=== PATIENT | female | born 1945 | race American Indian/Alaskan Native ===

== ENCOUNTER 2017-06-21 15:15 | Inpatient (IN) | payer MEDICARE ==
[2017-06-21 16:08] LABS: Basophils % (Auto) 1.4 % (0.0-1.8); Eosinophils % (Auto) 0.6 % (0.0-4.3); Hematocrit 44.2 % (30.3-42.9); Hemoglobin 14.3 gm/dl (10.1-14.3); Mean Corpuscular HGB Conc 32 % (30-34); Mean Corpuscular Hemoglobin 29 pg (28-32); Mean Corpuscular Volume 90 fl (79-97); Platelet Count 300 K/mm3 (140-440); Red Blood Count 4.92 M/mm3 (3.65-5.03); Red Cell Distribution Width 14.3 % (13.2-15.2); White Blood Count 8.3 K/mm3 (4.5-11.0)
[2017-06-21 16:20] LABS: Anion Gap 21 mmol/L; BUN/Creatinine Ratio 12; Blood Urea Nitrogen 11 mg/dL (7-17); Calcium 10.1 mg/dL (8.4-10.2); Carbon Dioxide 26 mmol/L (22-30); Chloride 97.2 mmol/L (98-107); Glucose 162 mg/dL (65-100); Potassium 3.9 mmol/L (3.6-5.0); Sodium 140 mmol/L (137-145)
--- NOTE | 2017-06-21 18:44 | Emergency Department Report ---
HPI - General Chief Complaint: Chest Pain Time Seen by Provider: 06/21/17 17:14 - HPI HPI: This is a 71-year-old -[place] Citizen female presents to the emergency department with complaint of some midsternal nonradiating chest pain that started earlier today but that has since resolved. The patient says that over the past year she has been very immobile and spitting a lot of time in bed. At first she just felt like it was because she is fatigued but it appears that she has had some physical deconditioning. The patient has a past medical history of arthritis, diabetes, hypertension, fibromyalgia and coronary artery disease with 3 stents. The patient was here in December or chest pain issues and had a negative stress test at that time. Her primary care physician is Dr. Alan. Her blood bank calendar control clerk is Dr. Godoy. No recent travel or sick contacts at home. She denies any fever, nausea, vomiting or diaphoresis. She has not taken anything for her symptoms prior to presentation today. ED Past Medical Hx - Past Medical History Hx Hypertension: Yes Hx Diabetes: Yes Hx Arthritis: Yes Additional medical history: gastritis. heart disease. fibromylagia - Surgical History Hx Coronary Stent: Yes (3) Additional Surgical History: hyster - Social History Smoking Status: Current Some Day Smoker Substance Use Type: None - Medications Home Medications: Home Medications Medication Instructions Recorded Confirmed Last Taken Type LORazepam [Ativan] 1 mg PO TID PRN 08/17/14 06/21/17 06/21/17 History Citalopram [Celexa] 20 mg PO QDAY 01/02/17 06/21/17 06/21/17 History Famotidine [Pepcid] 40 mg PO DAILY 01/02/17 06/21/17 06/21/17 History Metoprolol Succinate 25 mg PO BID 01/02/17 06/21/17 06/21/17 History amLODIPine [Norvasc] 10 mg PO BID 01/02/17 06/21/17 06/21/17 History Acetaminophen with Codeine 1 tab PO Q6HR PRN 06/21/17 06/21/17 Unknown History [Acetaminophen-Codeine #4 TAB] Furosemide [Lasix] 20 mg PO QAM 06/21/17 06/21/17 06/21/17 History ED Review of Systems ROS: Stated complaint: CHEST PAIN/SHORTNESS OF BREATH Other details as noted in HPI Comment: All other systems reviewed and negative Constitutional: denies: chills, fever Eyes: denies: eye pain, eye discharge, vision change ENT: denies: ear pain, throat pain Respiratory: denies: cough, wheezing Cardiovascular: chest pain. denies: palpitations Gastrointestinal: denies: abdominal pain, nausea, diarrhea Genitourinary: denies: urgency, dysuria, discharge Musculoskeletal: denies: back pain, joint swelling, arthralgia Skin: denies: rash, lesions Neurological: denies: headache, numbness Physical Exam - Physical Exam Vital Signs: Vital Signs 06/21/17 06/21/17 06/21/17 15:30 17:02 17:49 Temperature 98.3 F 98.5 F Pulse Rate 75 72 Respiratory 16 16 16 Rate Blood Pressure 129/77 Blood Pressure 120/67 [Left] O2 Sat by Pulse 93 97 95 Oximetry Physical Exam: GENERAL: The patient is well-developed well-nourished. HENT: Normocephalic. Atraumatic. Patient has moist mucous membranes. EYES: Extraocular motions are intact. Pupils equal reactive to light bilaterally. NECK: Supple. Trachea is midline. CHEST/LUNGS: Clear to auscultation. There is no respiratory distress noted. HEART/CARDIOVASCULAR: Regular. There is no tachycardia. There is no gallop rub or murmur. ABDOMEN: Abdomen is soft, nontender. Patient has normal bowel sounds. There is no abdominal distention. SKIN: Skin is warm and dry. NEURO: The patient is awake, alert. The patient is cooperative. The patient has no focal neurologic deficits. The patient has normal speech. MUSCULOSKELETAL: There is no tenderness or deformity. There is no limitation range of motion. There is no evidence of acute injury. ED Course Vital Signs 06/21/17 06/21/17 06/21/17 15:30 17:02 17:49 Temperature 98.3 F 98.5 F Pulse Rate 75 72 Respiratory 16 16 16 Rate Blood Pressure 129/77 Blood Pressure 120/67 [Left] O2 Sat by Pulse 93 97 95 Oximetry ED Medical Decision Making - Lab Data Result diagrams: 06/21/17 15:43 06/21/17 15:43 - EKG Data -: EKG Interpreted by Me EKG shows normal: sinus rhythm, axis (left axis deviation), intervals, QRS complexes (Q waves to the anterior and inferior leads), ST-T waves (flat T waves and some T-wave inversions to the lateral leads) Rate: normal - EKG Data When compared to previous EKG there are: changes noted (patient now has some T- wave inversions to the lateral leads but otherwise unchanged.) Interpretation: other (sinus rhythm, left axis deviation, Q waves to the anterior and inferior leads, T-wave inversions to the lateral leads) - Radiology Data Radiology results: image reviewed interpreted by me: Chest x-ray does not show any acute process. There are no pleural effusions, obvious pneumonia and there is no pneumothorax. - Medical Decision Making 72-year-old female presents with some chest pain going on for most the day but that has appeared to resolve. EKG does not show any ST elevation MS but there are some T-wave inversions to the lateral leads that are new from her previous EKG. Negative d-dimer. Chest x-ray does not show any acute process. While patient does not appear in any acute distress, with her history of previous coronary artery disease, her advanced age, the EKG changes, the patient will be admitted to the hospital for further evaluation and treatment. - Differential Diagnosis MS, PE, Dysrhythmia, Pneumonia Critical Care Time: No Critical care attestation.: If time is entered above; I have spent that time in minutes in the direct care of this critically ill patient, excluding procedure time. ED Disposition Clinical Impression: History of PTCA Chest pain Qualifiers: Chest pain type: unspecified Qualified Code(s): R07.9 - Chest pain, unspecified Disposition: OP ADMIT IP TO THIS HOSP Is pt being admited?: Yes Does the pt Need Aspirin: Yes Condition: Stable Time of Disposition: 20:58
[2017-06-21] MEDS ORDERED: BABY ASPIRIN PO ONE (20:58)
[2017-06-21] MEDS ORDERED: HEPARIN SUB-Q ONE (21:42)
[2017-06-21] MEDS ORDERED: HEPARIN SUB-Q SCH (22:00)
--- NOTE | 2017-06-21 22:10 | History and Physical Report ---
History of Present Illness Date of examination: 06/21/17 Date of admission: 06/21/17 20:59 History of present illness: 72-year-old woman history of hypertension, diabetes, coronary artery disease comes emergency room with complaints of epigastric pain which 3 weeks ago.. She describes as a squeezing pain, intermittent every 5 minutes, intensity 5/10 , no radiation, she cannot identify an sounds exacerbating or relieving factors. Admits to shortness of breath, no nausea vomiting, diaphoresis or palpitation. Recent admission for chest pain Review Of Systems: Constitutional: no weight loss Ears, eyes, nose, mouth and throat: no nasal congestion, no nasal discharge, no sinus pressure, blurry vision, diplopia Neck: No neck pain or rigidity. Cardiovascular no , orthopnea, palpitations Respiratory: No cough Gastrointestinal: no abdominal pain, hematochezia Genitourinary : no dysuria, frequency , hematuria Musculoskeletal: no muscle ache Integumentary: no rash, no pruritis Neurological: no parathesias, focal weakness Endocrine: no cold or heat intolerance, no polyuria or polydipsia Hematologic/Lymphatic: no easy bruising, no easy bleeding, no gland swelling Allergic/Immunologic: no urticaria, no angioedema. PAST SURGICAL HISTORY: None SOCIAL HISTORY: Denies alcohol, drug, quit tobacco 2v weeks ago FAMILY HISTORY: Hypertension Medications and Allergies Allergies Allergy/AdvReac Type Severity Reaction Status Date / Time Iodinated Contrast- Oral and Allergy Unknown Verified 01/02/17 01:13 IV Dye rosuvastatin Allergy Unknown Verified 01/02/17 01:13 Home Medications Medication Instructions Recorded Confirmed Last Taken Type LORazepam [Ativan] 1 mg PO TID PRN 08/17/14 06/21/17 06/21/17 History Citalopram [Celexa] 20 mg PO QDAY 01/02/17 06/21/17 06/21/17 History Famotidine [Pepcid] 40 mg PO DAILY 01/02/17 06/21/17 06/21/17 History Metoprolol Succinate 25 mg PO BID 01/02/17 06/21/17 06/21/17 History amLODIPine [Norvasc] 10 mg PO BID 01/02/17 06/21/17 06/21/17 History Acetaminophen with Codeine 1 tab PO Q6HR PRN 06/21/17 06/21/17 Unknown History [Acetaminophen-Codeine #4 TAB] Furosemide [Lasix] 20 mg PO QAM 06/21/17 06/21/17 06/21/17 History Active Meds: Active Medications Heparin Sodium (Porcine) (Heparin) 5,000 unit SUB-Q Q8HR VOLODYMYR Last Admin: 06/21/17 21:54 Dose: Not Given Exam - Physical Exam Narrative exam: Gen. appearance: Patient lying in bed in no acute distress HEENT: Normocephalic/atraumatic, pupils equal round reactive to light, extra alkaline movement intact, no scleral icterus, no JVD or thyromegaly or nodule, neck is supple, mucous membrane moist, no erythema or exudate Heart: S1-S2, regular rate and rhythm Lungs: Clear to auscultation bilateral breathing comfortable Abdomen: Positive bowel sounds, nontender, nondistended, no organomegaly Extremities: No edema, cyanosis, clubbing Neuro:: Oriented 3 , cranial nerves II-12 intact, speech, motor intact Skin: No rash, nodules, warm dry - Constitutional Vitals: Temp Pulse Resp BP Pulse Ox 98.5 F 76 18 127/76 100 06/21/17 17:02 06/21/17 22:04 06/21/17 22:04 06/21/17 22:04 06/21/17 22:04 Results - Labs CBC & Chem 7: 06/21/17 15:43 06/21/17 15:43 Labs: Abnormal lab results 06/21/17 06/21/17 Range/Units 15:43 15:43 Hct 44.2 H (30.3-42.9) % [place] % (Auto) 7.6 H (0.0-7.3) % Chloride 97.2 L (98-107) mmol/L Glucose 162 H (65-100) mg/dL - Imaging and Cardiology EKG: image reviewed Chest x-ray: image reviewed Assessment and Plan Assessment Unstable angina Coronary artery disease Hypertension Diabetes type 2 Plan Admit to medicine Check cardiac enzymes, cardiology consult Check fingersticks initiate insulin sliding scale Continue outpatient medication comes start DVT prophylaxis
[2017-06-21] MEDS ORDERED: MORPHINE IV ONE (22:25)
[2017-06-21] MEDS ORDERED: ZOFRAN IV PRN (23:19)
[2017-06-21] MEDS ORDERED: DULCOLAX PR PRN (23:19)
[2017-06-21] MEDS ORDERED: APRESOLINE IV PRN (23:19)
[2017-06-21] MEDS ORDERED: TYLENOL PO PRN (23:19)
[2017-06-21] MEDS ORDERED: D50W (25GM) Syringe IV PRN (23:19)
[2017-06-21] MEDS ORDERED: MILK OF MAGNESIA PO PRN (23:19)
[2017-06-22 06:07] LABS: Basophils % (Auto) 1.1 % (0.0-1.8); Eosinophils % (Auto) 1.2 % (0.0-4.3); Hematocrit 39.1 % (30.3-42.9); Mean Corpuscular HGB Conc 33 % (30-34); Mean Corpuscular Hemoglobin 30 pg (28-32); Mean Corpuscular Volume 89 fl (79-97); Platelet Count 267 K/mm3 (140-440); Red Blood Count 4.39 M/mm3 (3.65-5.03); Red Cell Distribution Width 14.1 % (13.2-15.2); White Blood Count 9.4 K/mm3 (4.5-11.0)
[2017-06-22 06:49] LABS: Anion Gap 17 mmol/L; BUN/Creatinine Ratio 13; Blood Urea Nitrogen 8 mg/dL (7-17); Calcium 9.4 mg/dL (8.4-10.2); Carbon Dioxide 25 mmol/L (22-30); Chloride 98.5 mmol/L (98-107); Glucose 104 mg/dL (65-100); Potassium 3.7 mmol/L (3.6-5.0); Sodium 137 mmol/L (137-145)
--- NOTE | 2017-06-22 09:25 | XRay Report ---
AP CHEST: HISTORY: chest pain AP view of the chest demonstrates a normal mediastinal and cardiac contour with clear lungs and normal bony and soft tissue structures. No significant change since 01/02/17. IMPRESSION: Unremarkable AP chest.
--- NOTE | 2017-06-22 09:35 | Progress Note ---
Assessment and Plan Assessment and plan: --Unstable angina; serial cardiac enzymes, echocardiogram, cardiology evaluation Continue current cardiac medications, Stress test 6 months ago was negative --Hypertension; moderate control, continue current antihypertensives and when necessary medications --Diabetes mellitus; Accu-Chek sliding scale coverage and ADA diet and insulin as needed --DVT prophylaxis with Lovenox --Follow cardiology evaluation and recommendations --DC planning. Case management, possible HHS at discharge --Full code Discussed plan of care with the patient and her daughter at the bedside Answered all their questions History Interval history: Patient seen and examined medical records reviewed Complaints of intermittent chest pain Denies nausea vomiting Vital signs reviewed Hospitalist Physical - Constitutional Vitals: Temp Pulse Resp BP Pulse Ox 98.7 F 70 20 119/68 97 06/22/17 06:03 06/22/17 06:03 06/22/17 06:03 06/22/17 06:03 06/22/17 06:03 General appearance: Present: no acute distress, well-nourished - EENT Eyes: Present: PERRL, EOM intact - Neck Neck: Present: supple, normal ROM - Respiratory Respiratory effort: normal Respiratory: bilateral: diminished, negative: rales, rhonchi, wheezing - Cardiovascular Rhythm: regular Heart Sounds: Present: S1 & S2 - Extremities Extremities: no ischemia, No edema - Abdominal General gastrointestinal: soft, non-tender, non-distended, normal bowel sounds - Integumentary Integumentary: Present: clear, warm - Psychiatric Psychiatric: appropriate mood/affect, cooperative - Neurologic Neurologic: CNII-XII intact, moves all extremities Results - Labs CBC & Chem 7: 06/22/17 04:16 06/22/17 04:16 Labs: Laboratory Last Values WBC 9.4 K/mm3 (4.5-11.0) 06/22/17 04:16 RBC 4.39 M/mm3 (3.65-5.03) 06/22/17 04:16 Hgb 13.0 gm/dl (10.1-14.3) 06/22/17 04:16 Hct 39.1 % (30.3-42.9) 06/22/17 04:16 MCV 89 fl (79-97) 06/22/17 04:16 MCH 30 pg (28-32) 06/22/17 04:16 MCHC 33 % (30-34) 06/22/17 04:16 RDW 14.1 % (13.2-15.2) 06/22/17 04:16 Plt Count 267 K/mm3 (140-440) 06/22/17 04:16 Lymph % (Auto) 31.8 % (13.4-35.0) 06/22/17 04:16 [place] % (Auto) 11.3 % (0.0-7.3) H 06/22/17 04:16 Eos % (Auto) 1.2 % (0.0-4.3) 06/22/17 04:16 Baso % (Auto) 1.1 % (0.0-1.8) 06/22/17 04:16 Lymph # 3.0 K/mm3 (1.2-5.4) 06/22/17 04:16 [place] # 1.1 K/mm3 (0.0-0.8) H 06/22/17 04:16 Eos # 0.1 K/mm3 (0.0-0.4) 06/22/17 04:16 Baso # 0.1 K/mm3 (0.0-0.1) 06/22/17 04:16 Seg Neutrophils % 54.6 % (40.0-70.0) 06/22/17 04:16 Seg Neutrophils # 5.2 K/mm3 (1.8-7.7) 06/22/17 04:16 D-Dimer < 135.00 ng/mlDDU (0-234) 06/21/17 18:02 Sodium 137 mmol/L (137-145) 06/22/17 04:16 Potassium 3.7 mmol/L (3.6-5.0) 06/22/17 04:16 Chloride 98.5 mmol/L (98-107) 06/22/17 04:16 Carbon Dioxide 25 mmol/L (22-30) 06/22/17 04:16 Anion Gap 17 mmol/L 06/22/17 04:16 BUN 8 mg/dL (7-17) 06/22/17 04:16 Creatinine 0.6 mg/dL (0.7-1.2) L 06/22/17 04:16 Estimated GFR > 60 ml/min 06/22/17 04:16 BUN/Creatinine Ratio 13 % 06/22/17 04:16 Glucose 104 mg/dL (65-100) H 06/22/17 04:16 Calcium 9.4 mg/dL (8.4-10.2) 06/22/17 04:16 Troponin T < 0.010 ng/mL (0.00-0.029) 06/21/17 21:07
[2017-06-22] MEDS: celeXA PO SCH (10:04)
[2017-06-22] MEDS: LOVENOX SUB-Q SCH (10:05)
[2017-06-22] MEDS: NORVASC PO SCH ×2 (10:05→22:44)
[2017-06-22] MEDS: PEPCID PO SCH (10:05)
[2017-06-22] MEDS: LASIX PO SCH (10:05)
[2017-06-22] MEDS: TOPROL XL PO SCH ×2 (10:10→22:45)
[2017-06-22] MEDS: ATIVAN PO PRN ×2 (10:11→22:45)
[2017-06-22] MEDS: ASPIRIN PO SCH (10:11)
[2017-06-22] MEDS: MORPHINE IV PRN ×3 (11:43→23:37)
[2017-06-22] MEDS ORDERED: PNEUMOVAX 23 IM ONE (12:00)
[2017-06-22] MEDS ORDERED: Fluarix Quad 2017-2018(36 MOS+ IM ONE (12:00)
--- NOTE | 2017-06-22 19:58 | Consultation ---
CARDIOLOGY CONSULTATION REFERRING PHYSICIAN: Hospitalist service, Dr. Madalyn Choi. REASON FOR CONSULTATION: Advice an opinion regarding chest pain. HISTORY OF PRESENT ILLNESS: The patient is a pleasant 72-year-old female, who presents with fatigue and chest pain. Also history of depression. Daughter is at bedside and very helpful. Primary care is Dr. Partida. States that she is feeling tired, sharp chest pain here and there. No chest pain now. No exacerbating factors, no positional factor. No hematochezia, melena, hemoptysis, hematemesis. No abdominal pain, headache, blurred vision. No cold or heat intolerance. No fevers, chills. SOCIAL HISTORY: Denies alcohol. Quit smoking 2 weeks ago. PAST SURGICAL HISTORY: No known surgical history. ALLERGIES: CONTRAST DYE AND ROSUVASTATIN. MEDICATIONS: Inpatient and outpatient medications reviewed. REVIEW OF SYSTEMS: As per HPI. PHYSICAL EXAMINATION: VITAL SIGNS: Blood pressure is 150/60. She is afebrile. Tele reveals sinus rhythm, no dysrhythmias. O2 sat is 100% on 2 liters. HEENT: Sclerae are anicteric. NECK: Supple. No mass or JVD. CHEST: Clear to auscultation bilaterally. Good air movement. CARDIOVASCULAR: Regular rhythm, S1, S2. ABDOMEN: Soft, nontender, nondistended. Normoactive bowel sounds in all 4 quadrants. No mass or bruits. EXTREMITIES: No cyanosis, clubbing, edema. Good peripheral pulses. SKIN: Intact. No rashes. DIAGNOSTIC DATA: EKG reveals normal sinus rhythm, nonspecific T-wave changes. Cardiac enzymes are negative x 3. D-dimer is negative. CBC is normal. ASSESSMENT AND PLAN: In summary, the patient is a very pleasant 72-year-old female presents with chest pain with mostly atypical features. Cardiac enzymes negative. EKG unremarkable for acute chest. Chest pain free now. We will check a stress test and echocardiogram. Further plans once the tests are completed. Thank you for this consultation. We will be happy to follow along with you. JOB# [id number] SBM/NTS
[2017-06-23] MEDS: PEPCID PO SCH (10:36)
[2017-06-23] MEDS: TOPROL XL PO SCH (10:37)
[2017-06-23] MEDS ORDERED: LEXISCAN IV ONE (11:00)
--- NOTE | 2017-06-23 13:01 | Event Note ---
Date: 06/23/17 stress mpi this am: 1. no evidence of ischemia or prior infarct 2. nl nv fxn stable cv status
[2017-06-23] MEDS: LOVENOX SUB-Q SCH (13:30)
[2017-06-23] MEDS: NORVASC PO SCH (14:36)
[2017-06-23] MEDS: LASIX PO SCH (14:36)
[2017-06-23] MEDS: celeXA PO SCH (14:36)
[2017-06-23] MEDS: ASPIRIN PO SCH (14:36)
--- NOTE | 2017-06-23 14:36 | Discharge Summary ---
Providers - Providers Date of Admission: 06/21/17 20:59 Date of discharge: 06/23/17 Attending physician: SHANTA POTTS 06/21/17 23:19 Consult to Physician [CONS] Routine Consulting Provider: KRISTIN PALMA Reason For Exam: ua Place consult to:: [facility] Notified:: y Comment:: added to list Dr Mckoy on floor Primary care physician: PANEL LAMINATOR Hospitalization Condition: Good Pertinent studies: Stress test negative. Hospital course: Patient presented with what appeared to be chest pain unstable angina. Patient had stress test done was unremarkable. Also was chest pain-free as well. Patient did have a history of coronary artery disease therefore patient was worked up negative cardiac enzymes patient negative stress tests EKG was unremarkable as well. Patient is stable for discharge. Disposition: TO HOME OR SELFCARE Core Measure Documentation - Palliative Care Palliative Care/ Comfort Measures: Not Applicable - Core Measures Any of the following diagnoses?: none Exam - Constitutional Vitals: Temp Pulse Resp BP Pulse Ox 98.7 F 80 24 152/74 98 06/23/17 08:20 06/23/17 11:55 06/23/17 08:20 06/23/17 11:55 06/23/17 08:20 General appearance: Present: no acute distress, well-nourished - EENT Eyes: Present: PERRL ENT: hearing intact, clear oral mucosa - Neck Neck: Present: supple, normal ROM - Respiratory Respiratory effort: normal Respiratory: bilateral: CTA - Cardiovascular Heart Sounds: Present: S1 & S2. Absent: rub, click - Extremities Extremities: pulses symmetrical, No edema Peripheral Pulses: within normal limits - Abdominal General gastrointestinal: Present: soft, non-tender, non-distended, normal bowel sounds Female genitourinary: Present: normal - Integumentary Integumentary: Present: clear, warm, dry - Musculoskeletal Musculoskeletal: gait normal, strength equal bilaterally - Psychiatric Psychiatric: appropriate mood/affect, intact judgment & insight - Neurologic Neurologic: CNII-XII intact, moves all extremities Plan Activity: no restrictions Weight Bearing Status: Full Weight Bearing Diet: low fat, low salt Follow up with: PRIMARY CARE,MD [Primary Care Provider] - 3-5 Days Prescriptions: Aspirin [Aspirin TAB] 325 mg PO QDAY #30 tablet LORazepam [Ativan] 1 mg PO TID PRN #30 tablet PRN Reason: Anxiety
[2017-06-23 18:01] VITALS: BP 139/79
--- NOTE | 2017-06-23 18:26 | Treadmill Report ---
NUCLEAR PERFUSION SCAN REFERRING PHYSICIAN: Hospitalist service. PROTOCOL: The patient was brought to the stress lab in a postabsorptive state, given 10 mCi of technetium 99m. The patient underwent rest imaging. The patient underwent Lexiscan stress test. At peak stress, the patient was given 26 mCi of technetium 99m. Shortly thereafter, the patient underwent stress imaging. Raw imaging reveals mild GI artifact. No significant motion artifact. SPECT imaging examined carefully in horizontal long axis, vertical long axis, short axis views. There is normal homogenous uptake of radioisotope in all reported segments. No evidence of a significant fixed or reversible perfusion defect suggestive of prior infarction or ischemia. Gated wall motion reveals normal systolic thickening, calculated ejection fraction of 90%. This is likely a computer overestimation. No TID. CONCLUSIONS: 1. Normal myocardial perfusion scan without evidence of active ischemia or prior infarction. 2. Normal left ventricular systolic performance without evidence of transient ischemic dilatation or stress-induced segmental wall motion abnormalities. JOB# [id number] CRISTAL/CINTHIA
== END 2017-06-23 18:00 | disposition home or self-care (01) | DRG 303 ==
LOC: ED 15:15 → 4A 20:59
PROVIDERS: ADMIT Internal Medicine; ATTEND Internal Medicine
PROC: 3E0234Z Introduction of Serum, Toxoid and Vaccine into Muscle, Percutaneous Approach (ICD-10-PCS; principal; 2017-06-22)
DX: I25.110 Atherosclerotic heart disease of native coronary artery with unstable angina pectoris (principal); M19.90 Unspecified osteoarthritis, unspecified site; E11.9 Type 2 diabetes mellitus without complications; F17.200 Nicotine dependence, unspecified, uncomplicated; F32.9 Major depressive disorder, single episode, unspecified; I10 Essential (primary) hypertension; Z95.5 Presence of coronary angioplasty implant and graft; Z90.710 Acquired absence of both cervix and uterus; Z79.899 Other long term (current) drug therapy; Z82.49 Family history of ischemic heart disease and other diseases of the circulatory system; Z91.041 Radiographic dye allergy status; Z23 Encounter for immunization
CPT/HCPCS: 36415; 71020; 78452; 80048; 82962; 84484; 85025; 85379; 90471; 90686; 90732; 93005; 93010; 93017; 93306; 94760; 96372; 99406; A9502; G0008; G0009; J1644; J1650; J2270; J2405; J2785